=== PATIENT | male | born 1960 | race Caucasian/White ===

== ENCOUNTER 2020-08-19 09:25 | Day surgery (SDC) | payer OTHER ==
[~2020-08-19] VITALS: Ht 177.8 cm; Wt 106.9 kg
[~2020-08-19 09:25] MED LIST: DESO.05TL; FISH OIL GUMMI1 EAC1 PO; MOVE FREE PLUS1 EACH PO; OMEP20ER PO
== END 2020-08-19 11:32 | disposition home or self-care (01) ==
LOC: ORSCSDS 09:25
PROVIDERS: Internal Medicine Gastroenterology
PROC: 0DBK8ZX Excision of Ascending Colon, Via Natural or Artificial Opening Endoscopic, Diagnostic (ICD-10-PCS; principal; 2020-08-19 10:45)
PROC: 0DBL8ZX Excision of Transverse Colon, Via Natural or Artificial Opening Endoscopic, Diagnostic (ICD-10-PCS; principal; 2020-08-19 10:45)
PROC: 0DBM8ZX Excision of Descending Colon, Via Natural or Artificial Opening Endoscopic, Diagnostic (ICD-10-PCS; principal; 2020-08-19 10:45)
DX: Z12.11 Encounter for screening for malignant neoplasm of colon (principal); Z86.010 Personal history of colon polyps; D12.2 Benign neoplasm of ascending colon; D12.3 Benign neoplasm of transverse colon; D12.4 Benign neoplasm of descending colon; Z87.891 Personal history of nicotine dependence; E78.5 Hyperlipidemia, unspecified; Z79.899 Other long term (current) drug therapy
CPT/HCPCS: 88305; J2704; J7120

== ENCOUNTER 2023-06-22 12:50 | Inpatient (IN) | payer MEDICARE, OTHER ==
[~2023-06-22] VITALS: Ht 177.8 cm; Wt 112.3 kg
[2023-06-22 13:28] LABS: BASOPHILS ABSOLUTE AUTO 0.03 K/mm3 (0.00-0.23); BASOPHILS PERCENT AUTO 1 % (0-2); EOSINOPHILS ABSOLUTE AUTO 0.17 K/mm3 (0.00-0.68); EOSINOPHILS PERCENT AUTO 4 % (0-6); Hematocrit 41.3 % (37.0-53.0); Hemoglobin 14.6 g/dL (13.5-17.5); IMMATURE GRAN ABSOLUTE AUTO 0.01 K/mm3 (0.00-0.10); IMMATURE GRAN PERCENT AUTO 0 % (0-1); LYMPHOCYTES ABSOLUTE AUTO 1.37 K/mm3 (0.84-5.20); LYMPHOCYTES PERCENT AUTO 29 % (21-46); MONOCYTES ABSOLUTE AUTO 0.42 K/mm3 (0.16-1.47); MONOCYTES PERCENT AUTO 9 % (4-13); Mean Corpuscular HGB 30.2 pg (26.0-34.0); Mean Corpuscular HGB Conc 35.4 g/dL (31.5-36.5); Mean Corpuscular Volume 85 fL (80-100); Mean Platelet Volume 9.5 fL (9.1-12.4); NEUTROPHILS ABSOLUTE AUTO 2.68 K/mm3 (1.96-9.15); NEUTROPHILS PERCENT AUTO 57 % (41-73); Platelet Count 203 K/mm3 (150-400); RDW Coefficient Variation 12.5 % (11.7-14.2); RDW Standard Deviation 38.8 fL (35.1-46.3); Red Blood Cell Count 4.84 M/mm3 (4.30-5.90); White Blood Cell Count 4.68 K/mm3 (4.00-11.30)
[2023-06-22 13:46] LABS: Albumin, Blood 4.3 g/dL (3.4-5.0); Albumin/Globulin Ratio 1.3 (0.8-1.8); Bilirubin, Total 0.5 mg/dL (0.1-1.0); Bun/Creatinine Ratio 27.1 (12.0-20.0); Calcium, Blood 8.9 mg/dL (8.5-10.1); Creatinine, Blood 0.7 mg/dL (0.60-1.20); Globulin, Blood 3.4 g/dL (2.2-4.0); Potassium, Blood 3.3 mmol/L (3.5-5.5); Total Protein, Blood 7.7 g/dL (6.4-8.2)
[2023-06-22] MEDS ORDERED: ROSUVASTATIN CAL5 MG PO (15:08)
[2023-06-22 15:42] LABS: Free Thyroxine 0.73 ng/dL (0.70-1.60); Thyroid Stimulating Hormone 1.9 uIU/mL (0.360-4.800); Triiodothyronine, Free 3.22 pg/mL (2.18-3.98)
[2023-06-22 17:29] LABS: International Normalized Ratio 1.01; Prothrombin Time Results 10.6 Sec (9.7-11.5)
[2023-06-22 17:40] LABS: Anti-Xa UFH, PHA Monitoring <0.10 IU/mL
[2023-06-22 17:55] LABS: CHOL/HDL RATIO 3.9; Cholesterol 156 mg/dL (50-200); HDL Cholesterol 40 mg/dL (>39); LDL/HDL RATIO 1.7; Low Density Lipoprotein Chol 67 mg/dL (0-110); Triglycerides 246 mg/dL (30-160); Very Low Density Lipoprot Chol 49 mg/dL (6-32)
[2023-06-22 18:26] VITALS: BP 140/92
[2023-06-22 20:11] VITALS: BP 137/88
[2023-06-22 23:19] VITALS: BP 145/78
[2023-06-23] VITALS (11 sets, daily range): BP systolic 112–163; BP diastolic 75–115
[2023-06-23 00:30] LABS: BASOPHILS ABSOLUTE AUTO 0.04 K/mm3 (0.00-0.23); BASOPHILS PERCENT AUTO 1 % (0-2); EOSINOPHILS ABSOLUTE AUTO 0.24 K/mm3 (0.00-0.68); EOSINOPHILS PERCENT AUTO 4 % (0-6); Hematocrit 40.6 % (37.0-53.0); IMMATURE GRAN ABSOLUTE AUTO 0.01 K/mm3 (0.00-0.10); IMMATURE GRAN PERCENT AUTO 0 % (0-1); LYMPHOCYTES ABSOLUTE AUTO 2.44 K/mm3 (0.84-5.20); LYMPHOCYTES PERCENT AUTO 38 % (21-46); MONOCYTES ABSOLUTE AUTO 0.54 K/mm3 (0.16-1.47); MONOCYTES PERCENT AUTO 8 % (4-13); Mean Corpuscular HGB 29.9 pg (26.0-34.0); Mean Corpuscular HGB Conc 34.5 g/dL (31.5-36.5); Mean Corpuscular Volume 87 fL (80-100); Mean Platelet Volume 9.4 fL (9.1-12.4); NEUTROPHILS ABSOLUTE AUTO 3.23 K/mm3 (1.96-9.15); NEUTROPHILS PERCENT AUTO 50 % (41-73); Platelet Count 206 K/mm3 (150-400); RDW Coefficient Variation 12.6 % (11.7-14.2); RDW Standard Deviation 39.7 fL (35.1-46.3); Red Blood Cell Count 4.69 M/mm3 (4.30-5.90)
[2023-06-23 00:51] LABS: Bun/Creatinine Ratio 19.4 (12.0-20.0); Calcium, Blood 8.8 mg/dL (8.5-10.1); Creatinine, Blood 0.82 mg/dL (0.60-1.20); Potassium, Blood 4.1 mmol/L (3.5-5.5)
--- NOTE | 2023-06-23 06:34 | NUR ---
SHIFT SUMMARY PATIENT ALERT AND ORIENTED X4. ON ROOM AIR WITH SPO2 >90%, NO COMPLAINTS OF SHORTNESS OF BREATH. VITAL SIGNS STABLE, SINUS RHYTHM ON TELE. PATIENT REPORTED THAT HE DID HAVE SOME CHEST DISCOMFORT WHICH HE DESCRIBED PRESSURE WHEN HE GOT UP TO USE THE RESTROOM THIS MORNING. NO OTHER ISSUES NOTED OVERNIGHT. PATIENT ASSESSED FOR IGNITION RISK AND EDUCATED ON FIRE SAFETY IN THE HOSPITAL. WILL CONTINUE TO MONITOR. CALL LIGHT WITHIN REACH.
--- NOTE | 2023-06-23 17:45 | NUR ---
SHIFT SUMMARY; ASSUMED CARE AT 0700. A/A/OX4, CARDILOGY CONSULT TODAY FOR ANGIOGRAM. DENIES CP DURING SHIFT, VSS. ANGIO COMPLETED IN AFTERNOON WITH RIGHT RADIAL SITE. HEPARIN DC'D POST ANGIO. TR BAND RECOVERY PER ORDERS, SITE NON SWOLLEN, NO BRUISING. CAP REFILL <3, ARM BOARD IN PLACE. EDUCATED ON NOT USING RIGHT HAND. DINNER PROVIDED AFTER PROCEDURE, WILL CONTINUE TO MONITOR AND TREAT UNTIL CHANGE OF SHIFT.
--- NOTE | 2023-06-23 21:01 | NUR ---
ASSUMED CARE PT IS A&O X4; SPO2 >92% ON RA; MAP >65. TR BAND SITE ABSENT OF OOZING OR HEMATOMA; SOME DRIED BLOOD NOTED AROUND SITE. PT DENIES CP AND SOB. MILD NAUSEA TREATED W/ ZOFRAN PER ORDER. PT'S AT BEDSIDE. EDUCATION GIVEN ABOUT IGNITION RISK; PT/PT FAMILY DENIES HAVING ANY PARAPHERNILIA.
--- NOTE | 2023-06-23 21:54 | NUR ---
UPDATE TR BAND REMOVED. TEGREDERM AND ARMBOARD IN PLACE. NO OOZING/HEMATOMA NOTED.
[2023-06-24 00:08] VITALS: BP 131/85
--- NOTE | 2023-06-24 00:28 | NUR ---
UPDATE PROVIDER NOTIFIED ABOUT NO VTE PROPHYLAXIS. SCD'S PUT ON PER ORDER.
[2023-06-24 03:56] VITALS: BP 138/103
[2023-06-24 04:21] LABS: BASOPHILS ABSOLUTE AUTO 0.04 K/mm3 (0.00-0.23); BASOPHILS PERCENT AUTO 1 % (0-2); EOSINOPHILS ABSOLUTE AUTO 0.13 K/mm3 (0.00-0.68); EOSINOPHILS PERCENT AUTO 2 % (0-6); Hematocrit 43.6 % (37.0-53.0); Hemoglobin 15.1 g/dL (13.5-17.5); IMMATURE GRAN ABSOLUTE AUTO 0.02 K/mm3 (0.00-0.10); IMMATURE GRAN PERCENT AUTO 0 % (0-1); LYMPHOCYTES ABSOLUTE AUTO 1.91 K/mm3 (0.84-5.20); LYMPHOCYTES PERCENT AUTO 27 % (21-46); MONOCYTES ABSOLUTE AUTO 0.76 K/mm3 (0.16-1.47); MONOCYTES PERCENT AUTO 11 % (4-13); Mean Corpuscular HGB 29.7 pg (26.0-34.0); Mean Corpuscular HGB Conc 34.6 g/dL (31.5-36.5); Mean Corpuscular Volume 86 fL (80-100); Mean Platelet Volume 9.6 fL (9.1-12.4); NEUTROPHILS PERCENT AUTO 59 % (41-73); Platelet Count 226 K/mm3 (150-400); RDW Coefficient Variation 12.3 % (11.7-14.2); RDW Standard Deviation 38.5 fL (35.1-46.3); Red Blood Cell Count 5.08 M/mm3 (4.30-5.90); White Blood Cell Count 6.96 K/mm3 (4.00-11.30)
[2023-06-24 04:33] LABS: Bun/Creatinine Ratio 21.3 (12.0-20.0); Calcium, Blood 9.2 mg/dL (8.5-10.1); Creatinine, Blood 0.84 mg/dL (0.60-1.20); Potassium, Blood 4.1 mmol/L (3.5-5.5)
--- NOTE | 2023-06-24 05:21 | NUR ---
SHIFT SUMMARY PT SLEPT/RESTED QUIETLY T/O MOST OF NIGHT. SPO2 >92% ON RA (OCCASIONAL DESATURATIONS, BUT QUICKLY RECOVERED WHILE SLEEPING); MAP >65. CONTINUES TO DENY CP, SOB, OR NAUSEA. MILD SOB OF NOTED W/ EXERTION (TOOK PT ON SHORT WALK; PT DID NOT FEEL ANY LIGHTHEADEDNESS OR CP WHILE WALKING). NO ACUTE EVENTS OVERNIGHT.
[2023-06-24 07:25] VITALS: BP 159/97
[2023-06-24] MEDS ORDERED: FAMO20 PO (09:10)
[2023-06-24] MEDS ORDERED: METO50ER PO (09:11)
[2023-06-24 09:20] VITALS: BP 143/85
[2023-06-24 09:45] VITALS: BP 127/84
--- NOTE | 2023-06-24 10:07 | NUR ---
D/C SUMMARY DISCHARGE EDUCATION PROVIDED TO PT AND SPOUSE. ANY QUESTIONS WERE ANSWERED. MEDICATIONS WERE FAXED TO [facility]. IV WAS D/C'D BY THE PCT, SITE WRAPPED WITH COBAN AND GAUZE. ALL BELONGINGS WERE SENT WITH THE PT. VS STABLE ON DISCHARGE. FIRE IGNITION RISK ASSESSED FOR PT AND FAMILY THIS AM. PT LEFT WITH SPOUSE AT ABOUT 1000.
== END 2023-06-24 10:04 | disposition home or self-care (01) | DRG 287 ==
LOC: ER 12:50 → PCU 17:20
PROVIDERS: Internal Medicine Cardiovascular Disease; Pharmacist; Physician Assistant; Student in an Organized Health Care Education/Training Program; ADMIT Internal Medicine
PROC: B2111ZZ Fluoroscopy of Multiple Coronary Arteries using Low Osmolar Contrast (ICD-10-PCS; principal; 2023-06-23)
PROC: 4A023N7 Measurement of Cardiac Sampling and Pressure, Left Heart, Percutaneous Approach (ICD-10-PCS; 2023-06-23)
PROC: B241ZZZ Ultrasonography of Multiple Coronary Arteries (ICD-10-PCS; 2023-06-23)
DX: I20.0 Unstable angina (principal); E78.5 Hyperlipidemia, unspecified; M51.36 Other intervertebral disc degeneration, lumbar region; I10 Essential (primary) hypertension; E87.6 Hypokalemia; E66.9 Obesity, unspecified; Z90.49 Acquired absence of other specified parts of digestive tract; Z98.890 Other specified postprocedural states; Z87.891 Personal history of nicotine dependence; Z79.899 Other long term (current) drug therapy; Z82.49 Family history of ischemic heart disease and other diseases of the circulatory system; Z68.35 Body mass index [BMI] 35.0-35.9, adult
CPT/HCPCS: 36415; 36416; 71046; 76937; 80048; 80053; 80061; 83036; 84439; 84443; 84481; 84484; 85025; 85379; 85520; 85610; 85730; 93005; 93010; 93306; 93454; 96374-59; 99152; 99153; 99285-25; A9270; C1769; C1887; C1894; J1644; J2250; J2405; J3010; J7030; J7050; Q9967

== ENCOUNTER 2024-01-03 10:50 | Day surgery (SDC) | payer MEDICARE, OTHER ==
[~2024-01-03] VITALS: Ht 180.3 cm; Wt 104.5 kg
[~2024-01-03 10:50] MED LIST changes: +8 HOUR ACETAMI650 MG PO; +ALLERCLEAR10 MG PO; +BIOTIN5000 MC4 PO; +FAMO20 PO; +Lactated Ringer's 1,000 ML IV ONE; +METO50ER PO; +MOVE FREE JOINT PO; +OMEGA-3 FISH O1 EAC6 PO; +ROSUVASTATIN CAL5 MG PO; +SIMETHICONE125 MG PO; +propofoL 40 ML IV ONE
[2024-01-03] MEDS ORDERED: Lactated Ringer's 1,000 ML IV ONE (11:32)
[2024-01-03] MEDS ORDERED: VITAMIN B-122000 MC1 PO (12:00)
[2024-01-03] MEDS ORDERED: propofoL 40 ML IV ONE (13:39)
[2024-01-03 14:35] VITALS: BP 124/76
== END 2024-01-03 14:18 | disposition home or self-care (01) ==
LOC: ORSCSDS 10:50
PROVIDERS: Internal Medicine Gastroenterology
PROC: 0DBN8ZX Excision of Sigmoid Colon, Via Natural or Artificial Opening Endoscopic, Diagnostic (ICD-10-PCS; principal; 2024-01-03 12:00)
PROC: 0DBK8ZX Excision of Ascending Colon, Via Natural or Artificial Opening Endoscopic, Diagnostic (ICD-10-PCS; principal; 2024-01-03 12:00)
PROC: 0DBP8ZX Excision of Rectum, Via Natural or Artificial Opening Endoscopic, Diagnostic (ICD-10-PCS; principal; 2024-01-03 12:00)
PROC: 0DBM8ZX Excision of Descending Colon, Via Natural or Artificial Opening Endoscopic, Diagnostic (ICD-10-PCS; principal; 2024-01-03 12:00)
PROC: 0DBL8ZX Excision of Transverse Colon, Via Natural or Artificial Opening Endoscopic, Diagnostic (ICD-10-PCS; principal; 2024-01-03 12:00)
DX: Z12.11 Encounter for screening for malignant neoplasm of colon (principal); Z86.010 Personal history of colon polyps; D12.5 Benign neoplasm of sigmoid colon; D12.2 Benign neoplasm of ascending colon; D12.3 Benign neoplasm of transverse colon; D12.4 Benign neoplasm of descending colon; D12.8 Benign neoplasm of rectum; K57.30 Diverticulosis of large intestine without perforation or abscess without bleeding; Z83.719 Family history of colon polyps, unspecified; E78.5 Hyperlipidemia, unspecified; K21.9 Gastro-esophageal reflux disease without esophagitis; Z79.899 Other long term (current) drug therapy; Z87.891 Personal history of nicotine dependence
CPT/HCPCS: 82947; 88305; J2704; J7120

== ENCOUNTER 2025-03-12 10:16 | Day surgery (SDC) | payer MEDICARE, OTHER ==
[~2025-03-12] VITALS: Ht 180.3 cm; Wt 101.4 kg
[~2025-03-12 10:16] MED LIST changes: +VITAMIN B-122000 MC1 PO; -propofoL 40 ML IV ONE
[2025-03-12] MEDS ORDERED: LOSARTAN POTASS25 M2 (10:48)
[2025-03-12] MEDS ORDERED: Lactated Ringer's 1,000 ML IV ONE (11:12)
[2025-03-12] MEDS ORDERED: propofoL 50 ML IV ONE ×2 (11:15→11:29)
[2025-03-12 12:31] VITALS: BP 101/75
== END 2025-03-12 12:20 | disposition home or self-care (01) ==
LOC: ORSCSDS 10:16
PROVIDERS: Internal Medicine Gastroenterology
PROC: 0DJD8ZZ Inspection of Lower Intestinal Tract, Via Natural or Artificial Opening Endoscopic (ICD-10-PCS; principal; 2025-03-12 11:30)
DX: Z12.11 Encounter for screening for malignant neoplasm of colon (principal); Z86.0101 Personal history of adenomatous and serrated colon polyps; Z83.719 Family history of colon polyps, unspecified; K64.4 Residual hemorrhoidal skin tags; I10 Essential (primary) hypertension; Z79.899 Other long term (current) drug therapy; Z79.82 Long term (current) use of aspirin; G47.33 Obstructive sleep apnea (adult) (pediatric); E78.5 Hyperlipidemia, unspecified; Z87.891 Personal history of nicotine dependence
CPT/HCPCS: 82947; J2704; J7120